=== PATIENT | male | born 2005 | race Caucasian/White ===

== ENCOUNTER 2023-09-24 19:28 | Emergency (ER) | payer SELFPAY ==
[2023-09-24] MEDS: Cefdinir 300 MG Cap PO ONE (20:21)
== END 2023-09-24 20:24 | disposition home or self-care (01) ==
LOC: MW.ED 19:28
DX: S62.635A Displaced fracture of distal phalanx of left ring finger, initial encounter for closed fracture (principal); W23.0XXA Caught, crushed, jammed, or pinched between moving objects, initial encounter
CPT/HCPCS: 73130; 99283; A9270